=== PATIENT | female | born 1955 | race Caucasian/White ===

== ENCOUNTER → 2017-07-20 | Outpatient (CLI) | payer BC ==
[~2017-07-20] MED LIST: IOHEXOL 240 MG/ML 50ML VIAL. ONE; IOHEXOL 300 MG/ML 75 ML VIAL. IV ONE
[2017-07-20 08:23] LABS: CREATININE 1.1 mg/dL (0.6-1.0); GFR 50.2
--- NOTE | 2017-07-20 11:20 | RAD ---
CT abdomen/pelvis with IV and oral contrast Indication: 62-year-old female with abdominal pain, bloating and diarrhea. Technique: CT abdomen/pelvis with 60 mL of IV Omnipaque 300 and 30 mL of P.O. Omnipaque 240 with multiplanar reformats. Comparison: None Findings: Heart is normal in size. No pericardial or pleural effusion. Moderate-sized sliding hilar hernia. Clear lung bases. Liver is normal in morphology without focal hepatic lesion. Spleen within normal limits. No radiopaque gallstones. No pericholecystic fluid or inflammatory changes. Pancreas within normal limits without peripancreatic inflammatory changes. Adrenal glands show no nodularity. Simple appearing right renal cyst measuring 2.3 cm. There is a 1.7 x 1.8 x 1.3 cm partially exophytic lesion within the superior pole of the left kidney demonstrating high attenuation of 40 7HU. Several other cortical based low attenuating lesions are seen in the right kidney. No nephrolithiasis. No pathologically enlarged abdominal or pelvic adenopathy. No bowel obstruction. Mild sigmoid diverticulosis. Oral contrast is seen opacifying loops of small bowel. Small omental fat-containing umbilical hernia. Scattered atherosclerotic disease of the aorta. Uterus is not visualized. Left ovary is visualized and is within normal limits. Right ovary is not visualized. No free fluid in the pelvis. Small fat-containing bilateral inguinal hernias. No suspicious bony lesions. Impression: 1. No bowel obstruction. Moderate sized sliding hiatal hernia. Mild sigmoid diverticulosis without diverticulitis. 2. Simple right renal cyst. Lesions within left kidney, the dominant one within superior pole demonstrates high attenuation not typical of simple cyst and most likely represents minimally complicated cysts containing proteinaceous debris/blood products. Elective, nonemergent triple phase CT of the kidneys or MRI abdomen with and without IV contrast is recommended for further evaluation. PQRS Compliance Statement: One or more of the following individualized dose reduction techniques were utilized for this examination: 1. Automated exposure control 2. Adjustment of the mA and/or kV according to patient size 3. Use of iterative reconstruction technique
== END | disposition home or self-care (01) ==
LOC: CT 07:51
PROVIDERS: ATTEND Surgery
DX: N28.1 Cyst of kidney, acquired (principal); K40.90 Unilateral inguinal hernia, without obstruction or gangrene, not specified as recurrent; K44.9 Diaphragmatic hernia without obstruction or gangrene; K57.30 Diverticulosis of large intestine without perforation or abscess without bleeding; N28.89 Other specified disorders of kidney and ureter; K42.9 Umbilical hernia without obstruction or gangrene; I70.0 Atherosclerosis of aorta
CPT/HCPCS: 36415; 74177; 82565; 84520; Q9966; Q9967

== ENCOUNTER → 2018-06-13 | Outpatient (CLI) | payer BC ==
--- NOTE | 2018-06-14 07:40 | RAD ---
INDICATION: Left ankle pain. Twisting injury one day ago. TECHNIQUE: 3 views of the left ankle are submitted for review. No comparison is available. FINDINGS: There is diffuse soft tissue swelling more notable medially. There is no fracture or dislocation. There is no osseous lesion. IMPRESSION: Soft tissue swelling. Electronically signed by: Alvaro Santos MD (06/14/2018 7:36 AM) [facility]
== END | disposition home or self-care (01) ==
LOC: RAD 17:08
PROVIDERS: ATTEND Physician Assistant
DX: M79.89 Other specified soft tissue disorders (principal)
CPT/HCPCS: 73610

== ENCOUNTER → 2019-03-12 | Outpatient (CLI) | payer BC ==
--- NOTE | 2019-03-12 16:10 | RAD ---
EXAM: Chest, 2 views. HISTORY: Cough. COMPARISON: 06/13/2015. FINDINGS: 2 views of the chest are obtained. There is left perihilar atelectasis or interstitial infiltrate. There is no consolidation, effusion or pneumothorax. The heart is normal in size. There is a small hiatal hernia. IMPRESSION: Right perihilar atelectasis or interstitial infiltrate. Electronically signed by: Christine Crystal MD (03/12/2019 4:08 PM) [place] [id number]
== END | disposition home or self-care (01) ==
LOC: PMG 15:42
PROVIDERS: ATTEND Registered Nurse
DX: R05 Cough (principal); K44.9 Diaphragmatic hernia without obstruction or gangrene
CPT/HCPCS: 71046

== ENCOUNTER → 2019-12-31 | Outpatient (CLI) | payer BC ==
--- NOTE | 2019-12-31 10:35 | RAD ---
INDICATION: Abdomen pain COMPARISON: November 2015 TECHNIQUE: Grayscale and color ultrasound images obtained of the bilateral kidneys and bladder. FINDINGS: Right Kidney: 96 mm. No hydronephrosis. 33 x 31 mm cyst. Left Kidney: 95 mm. No hydronephrosis. 13 mm cyst. Bladder: Minimal urine within at time of exam limits evaluation. IMPRESSION: * No hydronephrosis with bilateral renal cysts seen. Increased from prior. Electronically signed by: Robbie Rodriguez MD (12/31/2019 10:32 AM) [facility] [place]
== END | disposition home or self-care (01) ==
LOC: US 08:21
PROVIDERS: ATTEND Physician Assistant Medical
DX: N28.1 Cyst of kidney, acquired (principal)
CPT/HCPCS: 76770

== ENCOUNTER → 2020-01-15 | Outpatient (CLI) | payer BC ==
--- NOTE | 2020-01-15 16:14 | RAD ---
EXAM: Left shoulder, 3 views. HISTORY: Pain. COMPARISON: None. FINDINGS: 3 views of the left shoulder obtained. There is no fracture, dislocation or subluxation. There is degenerative change involving the visualized cervical spine. IMPRESSION: No acute osseous finding. Electronically signed by: Christine Crystal MD (01/15/2020 4:11 PM) [facility] [place]
== END | disposition home or self-care (01) ==
LOC: PMG 14:42
PROVIDERS: ATTEND Physician Assistant
DX: M25.512 Pain in left shoulder (principal); M47.812 Spondylosis without myelopathy or radiculopathy, cervical region
CPT/HCPCS: 73030

== ENCOUNTER 2020-05-22 05:53 | Emergency (ER) | payer BC ==
[~2020-05-22] VITALS: Ht 170.2 cm; Wt 70.0 kg
[2020-05-22 06:08] VITALS: BP 132/71
--- NOTE | 2020-05-22 06:22 | PHYS DOC ---
Past History Past Medical History: GERD, Hypertension, UTI, Vascular Disease Past Surgical History: Appendectomy, Hysterectomy Smoking: Non-smoker Alcohol Use: Occasionally General Adult EDM: Chief Complaint: General Complaint HPI: HPI: Patient is a 64-year-old female presenting to the ED with a chief complaint of chills. Patient states that the symptoms started last night around 7 PM. Patient complains of mild bilateral low back pain and she thinks that she may have had a UTI. Patient denies fever, nausea, vomiting, chest pain, shortness of breath, cough. Patient states that last time she felt like that she had a UTI. Review of Systems: Review of Systems: Constitutional: Complains of chills Eyes: Denies change in visual acuity HENT: Denies nasal congestion or sore throat Respiratory: Denies cough or shortness of breath Cardiovascular: Denies chest pain or edema GI: Denies abdominal pain, nausea, vomiting, bloody stools or diarrhea : Denies dysuria Musculoskeletal: Complains of mild bilateral low back pain Neurologic: Denies headache, focal weakness or sensory changes Heart Score: Risk Factors: Risk Factors: DM, Current or recent (<one month) smoker, HTN, HLP, family history of CAD, obesity. Risk Scores: Score 0 - 3: 2.5% MACE over next 6 weeks - Discharge Home Score 4 - 6: 20.3% MACE over next 6 weeks - Admit for Clinical Observation Score 7 - 10: 72.7% MACE over next 6 weeks - Early Invasive Strategies Allergies: Allergies: Allergies Coded Allergies Type Severity Reaction Last Updated Verified ciprofloxacin Allergy Unknown 07/20/17 Yes Physical Exam: PE: Constitutional: Well developed, well nourished, no acute distress, non-toxic appearance. [] HENT: Normocephalic, atraumatic Eyes: EOMI Neck: Normal range of motion, Supple Cardiovascular:Heart rate regular rhythm Lungs & Thorax: Bilateral breath sounds clear to auscultation [] Abdomen: Bowel sounds normal, soft, no tenderness Extremities: No tenderness, ROM intact Neurologic: Alert and oriented X 3 Current Patient Data: Vital Signs: Vital Signs Date Time Temp Pulse Resp B/P (MAP) Pulse Ox O2 Delivery O2 Flow Rate FiO2 05/22/20 06:08 97.9 87 20 132/71 (91) 95 Room Air EKG: EKG: [] Radiology/Procedures: Radiology/Procedures: [] Course & Med Decision Making: Course & Med Decision Making Pertinent Labs reviewed. (See chart for details) Ordered labs, UA. Patient is afebrile currently. Labs show mild leukocytosis of 13.1. UA shows that patient has UTI. IV Rocephin given in the ER. Patient will be discharged home on oral antibiotics. Discussed results and plan of care with patient. Patient is instructed to follow up with PCP in one to 2 days. Appropriate discharge instructions given to patient to return to the ED or to seek immediate medical evaluation. Patient is instructed to return to the ED if symptoms worsen or if any concerns. Dragon Disclaimer: Dragon Disclaimer: This electronic medical record was generated, in whole or in part, using a voice recognition dictation system. Departure Departure: Impression: Primary Impression: UTI (urinary tract infection) Disposition: 01 HOME/RESIDENCE PRIOR TO ADM Condition: STABLE Referrals: CARMEN DOMINGUEZ (PCP) Patient Instructions: Urinary Tract Infection Additional Instructions: Discussed results and plan of care with patient. Patient is instructed to follow up with PCP in one to 2 days. Appropriate discharge instructions given to patient to return to the ED or to seek immediate medical evaluation. Patient is instructed to return to the ED if symptoms worsen or if any concerns. Scripts Nitrofurantoin Monohyd/M-Cryst (MACROBID 100 MG CAPSULE) 100 Mg Capsule 1 CAP PO BID for UTI for 10 Days, #20 CAP 0 Refills Prov: ANAYA GLASER DO 05/22/20 Justification of Admission: Justification of Admission: Justification of Admission Dx: No ANAYA GLASER DO May 22, 2020 06:22
[2020-05-22 06:45] LABS: BASO # 0.1 x10^3/uL (0.0-0.2); BASO % 0 % (0-3); EOS # 0.1 x10^3/uL (0.0-0.7); EOS % 1 % (0-3); HEMATOCRIT 35.8 % (36.0-47.0); HEMOGLOBIN 12.1 g/dL (12.0-15.5); LYMPH % 8 % (24-48); MEAN CORPUSCULAR HEMOGLOBIN 30 pg (25-35); MEAN CORPUSCULAR HGB CONC 34 g/dL (31-37); MEAN CORPUSCULAR VOLUME 89 fL (79-100); MONO % 8 % (0-9); NEUT # 10.9 x10^3uL (1.8-7.7); NEUT % 83 % (31-73); PLATELET COUNT 263 x10^3/uL (140-400); RED BLOOD COUNT 4.04 x10^6/uL (3.50-5.40); RED CELL DISTRIBUTION WIDTH 14.1 % (11.5-14.5); WHITE BLOOD COUNT 13.1 x10^3/uL (4.0-11.0)
[2020-05-22 06:53] LABS: CALCIUM 8.8 mg/dL (8.5-10.1); CREATININE 1.1 mg/dL (0.6-1.0); GFR 49.8; POTASSIUM 3.4 mmol/L (3.5-5.1)
[2020-05-22 06:54] LABS: BILIRUBIN,URINE NEG (NEG); CLARITY,URINE CLOUDY; COLOR,URINE YELLOW; GLUCOSE,URINE NEG (NEG); NITRITE,URINE POS (NEG); UROBILINOGEN,URINE 0.2 mg/dL (0.2 mg/dL)
[2020-05-22 06:55] LABS: BACTERIA,URINE MANY /HPF (0-FEW); SQUAMOUS EPITHELIAL CELL,UR MOD /LPF; WBC,URINE 20-40 /HPF (0-4)
[2020-05-22 06:59] LABS: ALBUMIN 3.7 g/dL (3.4-5.0); ALBUMIN/GLOBULIN RATIO 0.9 (1.0-1.7); TOTAL BILIRUBIN 0.5 mg/dL (0.2-1.0); TOTAL PROTEIN 7.6 g/dL (6.4-8.2)
[2020-05-22] MEDS ORDERED: NITR100C62 PO (07:13)
[2020-05-22] MEDS ORDERED: cefTRIAXone SODIUM 1 GM VIAL ONE (07:20)
[2020-05-22] MEDS ORDERED: IV NORMAL SALINE 50ML 50 ML ONE (07:20)
== END 2020-05-22 08:15 | disposition home or self-care (01) ==
LOC: ER 05:53
DX: N39.0 Urinary tract infection, site not specified (principal); M54.5 Low back pain; R68.83 Chills (without fever); I10 Essential (primary) hypertension; K21.9 Gastro-esophageal reflux disease without esophagitis; Z90.89 Acquired absence of other organs; Z90.710 Acquired absence of both cervix and uterus; Z88.1 Allergy status to other antibiotic agents
CPT/HCPCS: 36415; 80053; 81001; 85025; 87086; 96365; 99284; J0696; 87077; 87186

== ENCOUNTER 2020-05-23 20:13 | Inpatient (IN) | payer BC ==
[~2020-05-23] VITALS: Ht 162.6 cm; Wt 89.5 kg
[~2020-05-23 20:13] MED LIST changes: -IOHEXOL 240 MG/ML 50ML VIAL. ONE; -IOHEXOL 300 MG/ML 75 ML VIAL. IV ONE; +NITR100C62 PO
[2020-05-23] MEDS ORDERED: IV NORMAL SALINE 1,000ML 1,000 ML IV SCH ×3 (20:45→23:45)
[2020-05-23 21:20] LABS: BASO % 0 % (0-3); CREATININE 1.1 mg/dL (0.6-1.0); EOS # 0.1 x10^3/uL (0.0-0.7); EOS % 1 % (0-3); GFR 49.8; HEMATOCRIT 32.9 % (36.0-47.0); HEMOGLOBIN 11.1 g/dL (12.0-15.5); LYMPH # 0.6 x10^3/uL (1.0-4.8); LYMPH % 4 % (24-48); MEAN CORPUSCULAR HEMOGLOBIN 30 pg (25-35); MEAN CORPUSCULAR HGB CONC 34 g/dL (31-37); MEAN CORPUSCULAR VOLUME 89 fL (79-100); MONO # 0.7 x10^3/uL (0.0-1.1); MONO % 5 % (0-9); NEUT # 12.2 x10^3uL (1.8-7.7); NEUT % 90 % (31-73); PLATELET COUNT 245 x10^3/uL (140-400); POTASSIUM 3.3 mmol/L (3.5-5.1); RED BLOOD COUNT 3.69 x10^6/uL (3.50-5.40); RED CELL DISTRIBUTION WIDTH 14.1 % (11.5-14.5); WHITE BLOOD COUNT 13.6 x10^3/uL (4.0-11.0)
[2020-05-23 21:26] LABS: ALBUMIN 3.6 g/dL (3.4-5.0); ALBUMIN/GLOBULIN RATIO 1.1 (1.0-1.7); TOTAL BILIRUBIN 0.5 mg/dL (0.2-1.0)
[2020-05-23 21:27] LABS: BILIRUBIN,URINE NEG (NEG); CLARITY,URINE CLEAR; COLOR,URINE YELLOW; GLUCOSE,URINE NEG (NEG); NITRITE,URINE NEG (NEG); UROBILINOGEN,URINE 0.2 mg/dL (0.2 mg/dL)
[2020-05-23 21:28] LABS: BACTERIA,URINE MOD /HPF (0-FEW); SQUAMOUS EPITHELIAL CELL,UR FEW /LPF
--- NOTE | 2020-05-23 21:32 | PHYS DOC ---
Past History Past Medical History: GERD, Hypertension, UTI, Vascular Disease Past Surgical History: Appendectomy, Hysterectomy, Other Additional Past Surgical Histo: BLADDER RECONSTRUCTION, HERNIA Smoking: Non-smoker Alcohol Use: Occasionally General Adult EDM: Chief Complaint: FEVER HPI: HPI: 64-year-old female presents with fever and chills. The patient has felt generalized body aches and cramping and intermittent chills for the last 3 days. She has not had a fever until tonight. She is also had some mild shortness of breath without a significant cough. She was diagnosed with a UTI yesterday. She is on Macrobid. She has been taking her medications. Sensitivity results are not available. Patient has no specific COVID-19 exposures. 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 Review of Systems: Review of Systems: Constitutional: Fever and chills; body aches. Eyes: Denies change in visual acuity HENT: Denies nasal congestion or sore throat Respiratory: shortness of breath Cardiovascular: Denies chest pain or edema GI: Denies abdominal pain, nausea, vomiting, bloody stools or diarrhea : Denies dysuria Musculoskeletal: Denies back pain or joint pain Integument: Denies rash Neurologic: Denies headache, focal weakness or sensory changes Endocrine: Denies polyuria or polydipsia Lymphatic: Denies swollen glands Psychiatric: Denies depression or anxiety Heart Score: Risk Factors: Risk Factors: DM, Current or recent (<one month) smoker, HTN, HLP, family hi story of CAD, obesity. Risk Scores: Score 0 - 3: 2.5% MACE over next 6 weeks - Discharge Home Score 4 - 6: 20.3% MACE over next 6 weeks - Admit for Clinical Observation Score 7 - 10: 72.7% MACE over next 6 weeks - Early Invasive Strategies Current Medications: Current Meds: Current Medications Medications (Trade) Dose Ordered Sig/Sonya Start Time Stop Time Status Last Admin Dose Admin Acetaminophen (Tylenol) 650 mg 1X ONCE 05/23/20 21:45 05/23/20 21:46 Sodium Chloride 1,000 ml @ 1,650 mls/hr Q37M 05/23/20 20:45 05/23/20 21:45 05/23/20 20:45 1,650 MLS/HR Allergies: Allergies: Allergies Coded Allergies Type Severity Reaction Last Updated Verified Sulfa (Sulfonamide Antibiotics) Allergy Unknown 05/23/20 Yes ciprofloxacin Allergy Unknown 07/20/17 Yes Physical Exam: PE: Constitutional: Well developed, obese, well nourished, mild acute distress, non- toxic appearance. [] HENT: Normocephalic, atraumatic, bilateral external ears normal, oropharynx moist, no oral exudates, nose normal. [] Eyes: PERRLA, EOMI, conjunctiva normal, no discharge. [] Neck: Normal range of motion, no tenderness, supple, no stridor. [] Cardiovascular: Heart rate regular rhythm, no murmur [] Lungs & Thorax: Bilateral breath sounds clear to auscultation [] Abdomen: Bowel sounds normal, soft, no tenderness, no masses, no pulsatile masses. [] Skin: Warm, dry, no erythema, no rash. [] Back: No tenderness, no CVA tenderness. [] Extremities: No tenderness, no cyanosis, no clubbing, ROM intact, no edema. [] Neurologic: Alert and oriented X 3, normal motor function, normal sensory function, no focal deficits noted. [] Psychologic: Affect normal, judgement normal, mood normal. [] Current Patient Data: Labs: Laboratory Tests Test 05/23/20 20:55 White Blood Count 13.6 x10^3/uL (4.0-11.0) H Red Blood Count 3.69 x10^6/uL (3.50-5.40) Hemoglobin 11.1 g/dL (12.0-15.5) L Hematocrit 32.9 % (36.0-47.0) L Mean Corpuscular Volume 89 fL (79-100) Mean Corpuscular Hemoglobin 30 pg (25-35) Mean Corpuscular Hemoglobin Concent 34 g/dL (31-37) Red Cell Distribution Width 14.1 % (11.5-14.5) Platelet Count 245 x10^3/uL (140-400) Neutrophils (%) (Auto) 90 % (31-73) H Lymphocytes (%) (Auto) 4 % (24-48) L Monocytes (%) (Auto) 5 % (0-9) Eosinophils (%) (Auto) 1 % (0-3) Basophils (%) (Auto) 0 % (0-3) Neutrophils # (Auto) 12.2 x10^3uL (1.8-7.7) H Lymphocytes # (Auto) 0.6 x10^3/uL (1.0-4.8) L Monocytes # (Auto) 0.7 x10^3/uL (0.0-1.1) Eosinophils # (Auto) 0.1 x10^3/uL (0.0-0.7) Basophils # (Auto) 0.0 x10^3/uL (0.0-0.2) Vital Signs: Vital Signs Date Time Temp Pulse Resp B/P (MAP) Pulse Ox O2 Delivery O2 Flow Rate FiO2 05/23/20 21:06 99 20 132/71 (91) 97 Room Air 05/23/20 20:20 100.0 EKG: EKG: [] Radiology/Procedures: Radiology/Procedures: [] Impressions: Exam: Chest 2 views INDICATION: Cough TECHNIQUE: Frontal and lateral views of the chest Comparisons: None FINDINGS: The cardiomediastinal silhouette and pulmonary vessels are within normal limits. The lung and pleural spaces are clear. Fluid-filled distention of the esophagus with air-fluid level. IMPRESSION: Fluid-filled distention of the esophagus with air-fluid level. Correlate for achalasia. Consider aspiration precautions. Electronically signed by: Aaron Valentin MD (05/23/2020 9:52 PM) [id number] DICTATED AND SIGNED BY: AARON VALENTIN MD DATE: 05/23/202151 CC: HOWARD IGLESIAS DO; CARMEN DOMINGUEZ PA ~ Course & Med Decision Making: Course & Med Decision Making Pertinent Labs and Imaging studies reviewed. (See chart for details) The patient's heart rate is greater than 90, her blood pressure is normal, she has a fever, and a suspected source of infection. She meets sepsis criteria. 30 mL/kg of ideal body weight have been ordered as the patient's BMI is greater than 30. Lactic acid and blood cultures have been ordered. I will also give her Rocephin 1 g IV. The patient's urinalysis still shows white cells and bacteria, but leukocyte and nitrite negative. Her white count is 13. I will admit her to the hospital with presumed urosepsis., To go ahead and add a COVID-19 swab. Chest x-ray is negative for pneumonia. There is an air-fluid level in the esophagus. See official report for more details. I spoke with Dr. Deutsch and he has accepted the patient for admission. The presumption at this time is urosepsis. 47 minutes of critical care time was spent on this patient exclusive of other billable procedures. [] Dragon Disclaimer: Dragon Disclaimer: This electronic medical record was generated, in whole or in part, using a voice recognition dictation system. Departure Departure: Impression: Primary Impression: Sepsis Qualified Codes: A41.51 - Sepsis due to Escherichia coli [e. coli] Disposition: ADMITTED INPATIENT Admitting Physician: Chente Deutsch Condition: STABLE Referrals: CARMEN DOMINGUEZ (PCP) Justification of Admission: Justification of Admission: Justification of Admission Dx: Yes Sepsis: Infection Sepsis Assessment: Date and Time of Assessment Date: May 23, 2020 Time: 21:30 Vital Signs Vital Signs Vital Signs Date Time Temp Pulse Resp B/P (MAP) Pulse Ox O2 Delivery O2 Flow Rate FiO2 05/23/20 21:53 98 20 130/64 (86) 96 Room Air 05/23/20 20:20 100.0 Respirations Respiratory Effort: Normal Respiratory Pattern: Normal Cardiovascular HEART: No murmurs noted Lung Sounds Breath Sounds: Clear Capillary Refill Capillary Refill: Rt Hand < 3 seconds Peripheral Pulse Pulse Location: Monitor Pulse Strength: Normal (2+) Pulse Assessment Method: Monitor Integumentary Skin: Warm Skin Moisture: Dry Skin Turgor: Normal Skin Color: warm Fingernail Color: WNL Sepsis Assessment: Date and Time of Assessment Date: May 23, 2020 Time: 22:59 Vital Signs Vital Signs Vital Signs Date Time Temp Pulse Resp B/P (MAP) Pulse Ox O2 Delivery O2 Flow Rate FiO2 05/23/20 21:53 98 20 130/64 (86) 96 Room Air 05/23/20 20:20 100.0 Respirations Respiratory Effort: Normal Respiratory Pattern: Normal Cardiovascular Pulse Rhythm: Regular HEART: No murmurs noted Lung Sounds Breath Sounds: Clear Capillary Refill Capillary Refill: Rt Hand < 3 seconds Peripheral Pulse Pulse Location: Monitor Pulse Strength: Normal (2+) Pulse Assessment Method: Monitor Integumentary Skin: Warm Skin Moisture: Dry Skin Turgor: Normal Skin Color: warm Fingernail Color: WNL HOWARD IGLESIAS DO May 23, 2020 21:32
[2020-05-23] MEDS ORDERED: IV NORMAL SALINE 50ML 50 ML ONE (21:42)
[2020-05-23] MEDS ORDERED: cefTRIAXone SODIUM 1 GM VIAL ONE (21:42)
[2020-05-23] MEDS ORDERED: ACETAMINOPHEN 325 MG TABLET PO ONE (21:45)
--- NOTE | 2020-05-23 21:55 | RAD ---
Exam: Chest 2 views INDICATION: Cough TECHNIQUE: Frontal and lateral views of the chest Comparisons: None FINDINGS: The cardiomediastinal silhouette and pulmonary vessels are within normal limits. The lung and pleural spaces are clear. Fluid-filled distention of the esophagus with air-fluid level. IMPRESSION: Fluid-filled distention of the esophagus with air-fluid level. Correlate for achalasia. Consider aspiration precautions. Electronically signed by: Aaron Cheng MD (05/23/2020 9:52 PM) [id number]
[2020-05-23] MEDS ORDERED: ONDANSETRON PF 4 MG/2 ML VIAL. IVP PRN ×2 (23:45)
[2020-05-23] MEDS ORDERED: ACETAMINOPHEN 325 MG TABLET PO PRN ×2 (23:45)
[2020-05-23 23:50] VITALS: BP 128/75
--- NOTE | 2020-05-23 23:50 | NUR ---
The patient, DILIA BONILLA, 64 y/o, F admitted by VALE AVILES MD, was given written information regarding hospital policies, unit procedures and contact persons. Valuables were checked and logged. Call light at bedside. Will continue to monitor.
[2020-05-24 01:00] VITALS: BP 125/76
[2020-05-24] MEDS ORDERED: AMLO10TA8 PO (01:33)
[2020-05-24] MEDS ORDERED: OMEP40CA45 PO (01:33)
[2020-05-24 02:16] VITALS: BP 127/71
[2020-05-24] MEDS ORDERED: LOSA100T14 PO (02:16)
--- NOTE | 2020-05-24 02:17 | NUR ---
Pt is unaware of what medication she takes. She knows 3 out of the 4. She takes her blood pressure meds at night but when told her blood pressure is wnl she verbalizes understanding of not taking her meds. Will continue to monitor.
[2020-05-24 03:00] VITALS: BP 99/52
[2020-05-24 04:59] VITALS: BP 126/79
[2020-05-24 08:34] VITALS: BP 134/77
[2020-05-24 09:39] VITALS: BP 110/67
--- NOTE | 2020-05-24 10:24 | HP ---
ADMIT DATE: 05/23/2020 ATTENDING PHYSICIAN: Dr. vAiles. CHIEF COMPLAINT: Low-grade fevers and weakness. HISTORY OF PRESENT ILLNESS: The patient is a pleasant active 64-year-old female with a 3-day history of body aches, cramping, intermittent chills and low-grade fever was 100 degrees Fahrenheit. She had some mild cough. She was diagnosed with UTI, placed on Macrobid. In addition, she has some redness and cellulitis involving the medial portion of the right ankle. The dimensions are approximately 3 x 6 cm. There are no obvious open wounds. The skin is red and indurated, but very mild. I malia a line of demarcation. She denied any recent trauma. She was admitted then with a UTI, which cultures from the ED grew out greater than 100,000 colonies of E. coli, which is pansensitive to antibiotics. PAST MEDICAL HISTORY: Significant for essential hypertension, peripheral vascular disease. PAST SURGICAL HISTORY: Appendectomy, hysterectomy and previous bladder reconstruction. SOCIAL HISTORY: She is a nonsmoker, nondrinker. FAMILY HISTORY: Her mom at age 64 of a cerebral aneurysm. Father at age 66 of complications of heart disease and emphysema. He had been a heavy smoker. She is . 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 She is exposed to the public, but there has not been any recent exposure for COVID-19 symptoms. CURRENT MEDICATIONS: Reviewed. She takes scheduled amlodipine 10 mg daily, losartan, Macrobid and omeprazole. REVIEW OF SYSTEMS: Significant for the low-grade fevers. She has had generalized weakness, some nausea. Appetite has been fair. No diarrhea, no vomiting. She denied any chest pain, palpitations, shortness of breath. All other systems reviewed and determined to be negative. PHYSICAL EXAMINATION: GENERAL: When I saw her, this is a pleasant, middle-aged female. INITIAL VITAL SIGNS: Showed a blood pressure 134/77 mmHg. Her temperature is 99.1 degrees Fahrenheit, pulse is 86 and regular, her oxygen saturations were 96% on room air. HEENT: Head is without trauma. Pupils are reactive. The sclerae are nonicteric. The oropharynx is clear. NECK: Supple, no bruits identified. LUNGS: Otherwise, clear to auscultation. CARDIOVASCULAR: Showed regular heart tones. No obvious gallops. Peripheral pulses are palpable and full. ABDOMEN: Soft, nontender to palpation. Bowel sounds are normoactive. EXTREMITIES: Showed no cyanosis. There is a small zone of erythema and mild induration on the medial portion of the right ankle. There are no obvious open wounds. The soles of the feet are intact. There are no obvious wounds, drainage or abscess. NEUROLOGIC: Focally intact. Speech is fluent. Technician Test Systems were intact. PERTINENT LABORATORY STUDIES: In the ED, her hemoglobin was 11.1 g/dL with white count of 13,000. Her sodium was 134 mEq/L, potassium 3.3 mEq. Lactic acid was 0.9. Liver panel unremarkable. Creatinine 1.1 mg/dL. Urine cultures from the ED noted, greater than 100,000 colonies of E. coli, which was sargent sensitive to the antibiotic. ASSESSMENT: 1. This 64-year-old female has E. coli documented urinary tract infection. I do not believe she is septic this time. Her lactic acid level was normal. Her temperature was low-grade. She is afebrile now and she does not appear toxic. 2. Localized cellulitis medial portion of the right ankle, etiology unclear. 3. Essential hypertension. 4. History of previous bladder surgery. PLAN: 1. Admit to the inpatient unit. 2. IV antibiotics as scheduled. 3. Continue home meds. 4. Diet as tolerated. VALE AVILES MD DR: TATY/mayra JOB#: [id number] / [id number] CARMEN Gomez
--- NOTE | 2020-05-24 10:33 | NUR ---
Pt discharging per Dr. Deutsch, pt a/ox4, vitals signs stable, reviewed d/c paperwork and follow up with pt. Levaquin 500mg PO daily x7 days called in to pt requested pharmacy, as well as hand written prescription given to pt. will crab picker pt at 1100. All questions answered.
--- NOTE | 2020-05-24 11:09 | NUR ---
pt discharged with -ambulated to car. All belongings taken.
--- NOTE | 2020-05-24 12:06 | NUR ---
[facility] pharmacy called to report interaction between Levaquin and Celexa that the pt is currently taking. Pt did not report taking Celexa during this hospital visit. Dr Deutsch called to report possible interaction-he instructed this nurse to call pt and tell her to not take Celexa during 7 days of prescribed Levaquin. Pt called explained possible interaction between two meds-pt verbalized she would not take celexa during 7 days of Levaquin prescription. Nurse explained to resume Celexa after Levaquin prescription completed.
--- NOTE | 2020-05-24 13:20 | DS ---
DATE OF DISCHARGE: 05/24/2020 FINAL DISCHARGE DIAGNOSES: 1. Escherichia coli urinary tract infection without evidence of sepsis syndrome. 2. Localized cellulitis medial portion, right ankle. 3. Essential hypertension. 4. Mild dehydration, rehydrated. 5. History of bladder repair. HISTORY AND PHYSICAL: This is a pleasant active 64-year-old female with vague symptoms of weakness, not feeling well, low-grade fevers. She had a documented UTI done in the ED. She also had some localized cellulitis, clinically she does not appear septic at the time of admission. PHYSICAL EXAMINATION: Please see my dictated note. PERTINENT LABORATORY AND X-RAY STUDIES: Her white count was slightly elevated at 13,000; hemoglobin 11.1 g. Electrolytes are within normal range. Creatinine 1.2 percent. Urine culture reviewed dated May 23. She had greater than 100,000 colonies of E. coli, pansensitive to antibiotics. COURSE IN THE HOSPITAL: The patient was admitted overnight. She did well with IV hydration. Rocephin was administered. Her temperature defervesced. I examined her the next day, her symptoms have improved. The localized redness and cellulitis of the right ankle is improved ____. She felt well, she wanted to go home. I felt this is reasonable. Therefore, on the second hospital day, I recommended oral Gatorade to help with the electrolyte balance. In addition, 7 more days of Levaquin 500 mg p.o. daily for 7 days and stop. In the past, she reported as supposed allergy to CIPRO as it turned out it is not a true allergy. At that time, she had some shortness of breath and cough due to MONTSERRAT inhibitor and lisinopril. Therefore, at this time, I am ordering Levaquin, which will help with Staphylococcus coverage. Please note that she truly does not have a drug reaction or allergy to quinolones. She will continue her home meds are amlodipine and losartan. I suggested a followup visit with Joao Rutherford in a week's time or earlier if symptoms do not improve. She did have a COVID-19 swab which is very unlikely given the lack of symptoms that was still pending. She will call back here for the results later this week. The patient was then discharged from our hospital in stable condition with explicit instructions and followup care. VALE AVILES MD DR: TATY/mayra JOB#: [id number] / [id number] CARMEN Gomez
--- NOTE | 2020-06-03 15:29 | NUR ---
IP: notified patient of COVID-19 result.
== END 2020-05-24 11:09 | disposition home or self-care (01) | DRG 603 ==
LOC: ER 20:13 → ICU 23:00 → ER 23:42
PROVIDERS: ADMIT Hospitalist; ATTEND Hospitalist
DX: L03.115 Cellulitis of right lower limb (principal); N39.0 Urinary tract infection, site not specified; E86.0 Dehydration; I10 Essential (primary) hypertension; I73.9 Peripheral vascular disease, unspecified; B96.20 Unspecified Escherichia coli [E. coli] as the cause of diseases classified elsewhere; Z82.5 Family history of asthma and other chronic lower respiratory diseases; Z88.1 Allergy status to other antibiotic agents; Z90.49 Acquired absence of other specified parts of digestive tract; Z90.710 Acquired absence of both cervix and uterus; Z88.2 Allergy status to sulfonamides; Z20.828 Contact with and (suspected) exposure to other viral communicable diseases; K21.9 Gastro-esophageal reflux disease without esophagitis
CPT/HCPCS: 36415; 71046; 80053; 81001; 83605; 85025; 87040; 87077; 87086; 87186; 96361; 96365; 99284; 99291; J0696; J7030; U0003-CS

== ENCOUNTER 2020-07-04 13:41 | Emergency (ER) | payer BC ==
[~2020-07-04] VITALS: Ht 165.1 cm; Wt 89.5 kg
[~2020-07-04 13:41] MED LIST changes: +AMLO10TA8 PO; +LOSA100T14 PO; +OMEP40CA45 PO
--- NOTE | 2020-07-04 14:14 | RAD ---
CHEST AP ONLY History: Shortness of breath: Comparison: May 23, 2020 Findings: Single view of the chest is submitted. There is no infiltrate, pneumothorax, or effusion. The pericardial cardiac silhouette is within normal limits in size. There is small hiatal hernia. Impression: 1. There is no radiographic evidence of acute cardiopulmonary disease. 2. There is small hiatal hernia. Electronically signed by: Lit Pettit MD (07/04/2020 2:11 PM) [id number]
[2020-07-04 14:43] LABS: BASO % 0 % (0-3); EOS # 0.1 x10^3/uL (0.0-0.7); EOS % 1 % (0-3); HEMATOCRIT 33.7 % (36.0-47.0); HEMOGLOBIN 11.3 g/dL (12.0-15.5); LYMPH # 1.3 x10^3/uL (1.0-4.8); LYMPH % 10 % (24-48); MEAN CORPUSCULAR HEMOGLOBIN 30 pg (25-35); MEAN CORPUSCULAR HGB CONC 34 g/dL (31-37); MEAN CORPUSCULAR VOLUME 89 fL (79-100); MONO % 8 % (0-9); NEUT # 10.3 x10^3uL (1.8-7.7); NEUT % 81 % (31-73); PLATELET COUNT 242 x10^3/uL (140-400); RED BLOOD COUNT 3.81 x10^6/uL (3.50-5.40); RED CELL DISTRIBUTION WIDTH 14.5 % (11.5-14.5); WHITE BLOOD COUNT 12.8 x10^3/uL (4.0-11.0)
[2020-07-04 14:46] LABS: CALCIUM 9.4 mg/dL (8.5-10.1); CREATININE 1.1 mg/dL (0.6-1.0); GFR 49.7; POTASSIUM 3.2 mmol/L (3.5-5.1)
[2020-07-04 14:53] LABS: ALBUMIN 3.8 g/dL (3.4-5.0); ALBUMIN/GLOBULIN RATIO 0.9 (1.0-1.7); C REACTIVE PROTEIN 125.5 mg/L (0-3.3); TOTAL BILIRUBIN 0.6 mg/dL (0.2-1.0); TOTAL PROTEIN 8.2 g/dL (6.4-8.2)
[2020-07-04] MEDS ORDERED: IOHEXOL 240 MG/ML 50ML VIAL. PO ONE (16:00)
[2020-07-04] MEDS ORDERED: IOHEXOL 350 MG/ML 100 ML VIAL. IV ONE (16:00)
[2020-07-04] MEDS ORDERED: POTASSIUM CHLORIDE 20 MEQ TABLET.ER. PO ONE (16:30)
--- NOTE | 2020-07-04 17:44 | PHYS DOC ---
Past History Past Medical History: No Pertinent History (KIAH BARRETO MD) Past Surgical History: No Surgical History Additional Past Surgical Histo: BLADDER RECONSTRUCTION, HERNIA (KIAH BARRETO MD) Smoking: Non-smoker Alcohol Use: None (KIAH BARRETO MD) Adult General Chief Complaint Chief Complaint: FEVER HPI HPI Patient is a 65 year old female who presents with multiple complaints. Patient was admitted at the end of April with E. coli sepsis from her bowels. She states since that time she is continued to have intermittent abdominal pains which have been getting worse. She continues to have aches and fevers. This is gotten particularly bad over the last 2 or 3 days. She also has developed shortness of breath particularly when she is trying to walk up and down stairs. She does not typically have shortness of breath. She denies any cough. She has been taking Tylenol and ibuprofen for symptoms with some improvement. She denies any swelling in her legs. (KIAH BARRETO MD) Review of Systems Review of Systems General: Reports fever, chills, sweats, fatigue Eyes: Denies drainage, blurred vision, eye redness HENT: Denies rhinorrhea, sore throat, earache Respiratory: Denies cough, wheezing reports shortness of breath Cardiac: Denies edema, palpitations, chest pain GI: Reports abdominal pain, Nausea MSK: Denies back pain, neck pain Skin: Denies rash, jaundice Neuro: Denies headache, dizziness Psychiatric: Denies SI/HI (KIAH BARRETO MD) Current Medications Current Medications Current Medications Medications (Trade) Dose Ordered Sig/Sonya Start Time Stop Time Status Last Admin Dose Admin Iohexol (Omnipaque 240 Mg/ml) 50 ml 1X ONCE 07/04/20 16:00 07/04/20 16:05 DC 07/04/20 17:29 50 ML Iohexol (Omnipaque 350 Mg/ml) 100 ml 1X ONCE 07/04/20 16:00 07/04/20 16:05 DC 07/04/20 17:29 75 ML Potassium Chloride (Klor-Con) 40 meq 1X ONCE 07/04/20 16:30 07/04/20 16:31 DC (KIAH BARRETO MD) Allergies Allergies Allergies Coded Allergies Type Severity Reaction Last Updated Verified Sulfa (Sulfonamide Antibiotics) Allergy Unknown 05/23/20 Yes ciprofloxacin Allergy Unknown 07/20/17 Yes (KIAH BARRETO MD) Physical Exam Physical Exam General: Awake, alert, NAD. Well Nourished, well hydrated. Cooperative HEENT: Atraumatic, EOMI, PERRL, airway patent, moist oral mucosa Neck: Supple, trachea midline Respiratory: CTA bilaterally, normal effort, no wheezing/crackles CV: RRR, no murmur, cap refill <2 GI: Soft, nondistended, nontender, no masses MSK: No obvious deformities, no joint effusions in either knee, no edema in the legs Skin: Warm, dry, intact Neuro: A&O x3, speech NL, sensory and motor grossly intact, no focal deficits Psych: Normal affect, normal mood, not suicidal or homicidal (KIAH BARRETO MD) Current Patient Data Vital Signs Vital Signs Date Time Temp Pulse Resp B/P (MAP) Pulse Ox O2 Delivery O2 Flow Rate FiO2 07/04/20 16:44 98.6 94 20 123/76 (92) 99 Room Air Lab Results Laboratory Tests Test 07/04/20 14:15 White Blood Count 12.8 x10^3/uL (4.0-11.0) H Red Blood Count 3.81 x10^6/uL (3.50-5.40) Hemoglobin 11.3 g/dL (12.0-15.5) L Hematocrit 33.7 % (36.0-47.0) L Mean Corpuscular Volume 89 fL (79-100) Mean Corpuscular Hemoglobin 30 pg (25-35) Mean Corpuscular Hemoglobin Concent 34 g/dL (31-37) Red Cell Distribution Width 14.5 % (11.5-14.5) Platelet Count 242 x10^3/uL (140-400) Neutrophils (%) (Auto) 81 % (31-73) H Lymphocytes (%) (Auto) 10 % (24-48) L Monocytes (%) (Auto) 8 % (0-9) Eosinophils (%) (Auto) 1 % (0-3) Basophils (%) (Auto) 0 % (0-3) Neutrophils # (Auto) 10.3 x10^3uL (1.8-7.7) H Lymphocytes # (Auto) 1.3 x10^3/uL (1.0-4.8) Monocytes # (Auto) 1.0 x10^3/uL (0.0-1.1) Eosinophils # (Auto) 0.1 x10^3/uL (0.0-0.7) Basophils # (Auto) 0.0 x10^3/uL (0.0-0.2) D-Dimer (Caroline) 0.53 mg/L (0.00-0.50) H Sodium Level 133 mmol/L (136-145) L Potassium Level 3.2 mmol/L (3.5-5.1) L Chloride Level 96 mmol/L (98-107) L Carbon Dioxide Level 26 mmol/L (21-32) Anion Gap 11 (6-14) Blood Urea Nitrogen 14 mg/dL (7-20) Creatinine 1.1 mg/dL (0.6-1.0) H Estimated GFR (Cockcroft-Gault) 49.7 BUN/Creatinine Ratio 13 (6-20) Glucose Level 103 mg/dL (70-99) H Calcium Level 9.4 mg/dL (8.5-10.1) Total Bilirubin 0.6 mg/dL (0.2-1.0) Aspartate Amino Transferase (AST) 18 U/L (15-37) Alanine Aminotransferase (ALT) 25 U/L (14-59) Alkaline Phosphatase 84 U/L (46-116) Lactate Dehydrogenase 165 U/L (81-234) Creatine Kinase 49 U/L (26-192) Troponin I Quantitative < 0.017 ng/mL (0-0.055) C-Reactive Protein 125.5 mg/L (0-3.3) H Total Protein 8.2 g/dL (6.4-8.2) Albumin 3.8 g/dL (3.4-5.0) Albumin/Globulin Ratio 0.9 (1.0-1.7) L (KIAH BARRETO MD) EKG EKG [] (KIAH BARRETO MD) Radiology/Procedures Radiology/Procedures [] (KIAH BARRETO MD) Radiology/Procedures IMAGING REPORT Signed PATIENT: DILIA BONILLA LACCOUNT: [id number] : 1955 LOCATION: ER AGE: 65 SEX: F EXAM STATUS: REG ER ORD. PHYSICIAN: KIAH BARRETO MD REASON: sob, chest pain, recent inpatient stay PROCEDURE: CT ANGIO CHEST W ABD PEL W/ Exam: CT of chest, abdomen and pelvis with contrast INDICATION: Shortness of breath, chest pain TECHNIQUE: Sequential axial images through the chest, abdomen and pelvis obtained following the administration of 75 mL of Omni 350 IV contrast. Sagittal and coronal reformatted images were reconstructed from the axial data and reviewed. Comparisons: None FINDINGS: Heterogenous appearance of the right thyroid gland. No suspicious lung nodules are identified. Heart size is normal. No pericardial effusion. Thoracic aorta has a normal course and caliber. Pulmonary artery is not enlarged. No pulmonary embolus identified within the main, lobar or segmental pulmonary arteries. Airways are patent. No consolidation or pneumothorax. No suspicious lung nodules. No pleural effusion or thickening. Liver, spleen, pancreas, gallbladder and adrenals are unremarkable. No perinephric inflammation or hydronephrosis. No renal or ureteral calculi are identified. There are numerous hypoattenuating cystic lesions within the kidneys bilaterally some of which are too small characterize. Bladder is distended and appears thin-walled. Uterus is absent. No abnormal adnexal mass. Few scattered diverticula noted within the descending and sigmoid colon without evidence of acute diverticulitis. Remainder of the large and small bowel are unremarkable. Appendix is not identified. No free intra-abdominal air or fluid. No obstruction. Abdominal aorta has a normal course and caliber. Abdominal vasculature is patent. No enlarged intra-abdominal lymph nodes are identified. No suspicious osseous lesions or acute fractures. IMPRESSION: 1. No pulmonary embolus identified within the main, lobar or segmental pulmonary arteries. 2. No acute process identified in the abdomen or pelvis. 3. Moderate-sized hiatal hernia. 4. Numerous hypoattenuating cystic lesions at the kidneys incompletely characterized on this study. 5. Diverticulosis without evidence of acute diverticulitis. Exposure: One or more of the following in the visualized dose reduction techniques were utilized for this examination: 1. Automated exposure control 2. Adjustment of the MA and/or KV according to patient size 3. Use of iterative of reconstructive technique Electronically signed by: Aaron Valentin MD (07/04/2020 6:05 PM) [id number] DICTATED AND SIGNED BY: AARON VALENTIN MD DATE: [id number] CC: KIAH BARRETO MD; GERARDO GUZMAN ~ (GERARDO JARRETT DO) Course & Med Decision Making Course & Med Decision Making Pertinent Labs and Imaging studies reviewed. (See chart for details) Patient 65-year-old female presents the emergency room with multiple complaints including abdominal pain, shortness of breath, fevers, body aches. Is unclear at this time what is causing her symptoms. She does have elevated inflammatory markers. CT Eulalia of chest and CT abdomen pelvis were ordered to evaluate for the cause of symptoms. Coronavirus test was ordered. Patient was discussed with oncoming physician who will assume care. (KIAH BARRETO MD) Course & Med Decision Making 65-year-old female presents the ED with complaints of generalized body aches, fatigue and shortness of breath for approximately 1 month, is convinced she needs antibiotics or has COVID. Lab work shows wbc 12.3, sodium 133, potassium 3.2 (replaced in ed), creatinine 1.1, and elevated CRP and d-dimer. CT Angio of the chest abdomen pelvis does not show any life-threatening pulmonary embolus, pneumonia, w/a normal aorta. It does show incidental findings of a hiatal hernia and diverticulosis. Urinalysis with no infection. COVID test pending. I recommend conservative management with hydration, muscle relaxers, anti- inflammatories and Tylenol. Life-threatening processes considered during patient's history and physical exam, low suspicion given her well appearance (sepsis, meningitis, encephalitis, UTI, pneumonia, pneumothorax, rhabdomyolysis, renal failure, etc). Patient requested to be discharged. Encouraged urgent PMD follow-up in 24 to 48 hours. Strict ED return precautions given for dehydration, neck stiffness, severe headache or increased work of breathing. All of patient's questions were answered and she was stable at time of discharge. (GERARDO JARRETT DO) Dragon Disclaimer Dragon Disclaimer This electronic medical record was generated, in whole or in part, using a voice recognition dictation system. (KIAH BARRETO MD) Departure Departure: Impression: Primary Impression: Shortness of breath Additional Impressions: Body aches Hiatal hernia Diverticulosis Disposition: 01 HOME/RESIDENCE PRIOR TO ADM Condition: STABLE Referrals: GERARDO GUZMAN (PCP) Patient Instructions: Myalgia, Adult, Shortness of Breath Scripts Methocarbamol (ROBAXIN-750) 750 Mg Tablet 1 TAB PO TID for pain for 30 Days, #20 TAB 0 Refills Prov: GERARDO JARRETT DO 07/04/20 Acetaminophen (8Hr Arthritis Pain) 650 Mg Tablet.er 650 MG PO Q6-8HRS PRN for PAIN, #20 TAB.SR Prov: GERARDO JARRETT DO 07/04/20 Justification of Admission: Justification of Admission: Justification of Admission Dx: Yes Sepsis: Infection (KIAH BARRETO MD) Justification of Admission Dx: N/A (GERARDO JARRETT DO) Problem Qualifiers KAIH BARRETO MD Jul 04, 2020 17:44 GERARDO JARRETT DO Jul 04, 2020 19:01
--- NOTE | 2020-07-04 18:09 | RAD ---
Exam: CT of chest, abdomen and pelvis with contrast INDICATION: Shortness of breath, chest pain TECHNIQUE: Sequential axial images through the chest, abdomen and pelvis obtained following the administration of 75 mL of Omni 350 IV contrast. Sagittal and coronal reformatted images were reconstructed from the axial data and reviewed. Comparisons: None FINDINGS: Heterogenous appearance of the right thyroid gland. No suspicious lung nodules are identified. Heart size is normal. No pericardial effusion. Thoracic aorta has a normal course and caliber. Pulmonary artery is not enlarged. No pulmonary embolus identified within the main, lobar or segmental pulmonary arteries. Airways are patent. No consolidation or pneumothorax. No suspicious lung nodules. No pleural effusion or thickening. Liver, spleen, pancreas, gallbladder and adrenals are unremarkable. No perinephric inflammation or hydronephrosis. No renal or ureteral calculi are identified. There are numerous hypoattenuating cystic lesions within the kidneys bilaterally some of which are too small characterize. Bladder is distended and appears thin-walled. Uterus is absent. No abnormal adnexal mass. Few scattered diverticula noted within the descending and sigmoid colon without evidence of acute diverticulitis. Remainder of the large and small bowel are unremarkable. Appendix is not identified. No free intra-abdominal air or fluid. No obstruction. Abdominal aorta has a normal course and caliber. Abdominal vasculature is patent. No enlarged intra-abdominal lymph nodes are identified. No suspicious osseous lesions or acute fractures. IMPRESSION: 1. No pulmonary embolus identified within the main, lobar or segmental pulmonary arteries. 2. No acute process identified in the abdomen or pelvis. 3. Moderate-sized hiatal hernia. 4. Numerous hypoattenuating cystic lesions at the kidneys incompletely characterized on this study. 5. Diverticulosis without evidence of acute diverticulitis. Exposure: One or more of the following in the visualized dose reduction techniques were utilized for this examination: 1. Automated exposure control 2. Adjustment of the MA and/or KV according to patient size 3. Use of iterative of reconstructive technique Electronically signed by: Aaron Cheng MD (07/04/2020 6:05 PM) [id number]
[2020-07-04 19:27] LABS: BILIRUBIN,URINE NEG (NEG); CLARITY,URINE HAZY; COLOR,URINE YELLOW; GLUCOSE,URINE NEG (NEG); NITRITE,URINE NEG (NEG); UROBILINOGEN,URINE 0.2 mg/dL (0.2 mg/dL)
[2020-07-04 19:28] LABS: BACTERIA,URINE MOD /HPF (0-FEW); SQUAMOUS EPITHELIAL CELL,UR OCC /LPF
[2020-07-04 19:34] VITALS: BP 124/73
[2020-07-04] MEDS ORDERED: KETOROLAC 30 MG/ML VIAL. ONE (19:59)
[2020-07-04] MEDS ORDERED: KETOROLAC 30 MG/ML VIAL. IVP ONE (20:00)
[2020-07-04] MEDS ORDERED: [UNRECOGNIZED DRUG - CODE] PO (20:09)
[2020-07-04] MEDS ORDERED: METH-38 PO (20:09)
== END 2020-07-04 20:15 | disposition home or self-care (01) ==
LOC: ER 13:41
DX: K57.90 Diverticulosis of intestine, part unspecified, without perforation or abscess without bleeding (principal); K44.9 Diaphragmatic hernia without obstruction or gangrene; R06.02 Shortness of breath; Z20.828 Contact with and (suspected) exposure to other viral communicable diseases; Z88.2 Allergy status to sulfonamides; Z88.1 Allergy status to other antibiotic agents
CPT/HCPCS: 36415; 71045; 71275; 74177; 80053; 81001; 82550; 83615; 84484; 85025; 85379; 86140; 87040; 87086; 87205; 96374; 99285; J1885; Q9966; Q9967; U0003

== ENCOUNTER 2021-09-30 17:03 | Emergency (ER) | payer BC ==
[~2021-09-30] VITALS: Ht 162.6 cm; Wt 82.7 kg
[~2021-09-30 17:03] MED LIST changes: +AMLO-187 PO; -AMLO10TA8 PO; +METH-38 PO; -OMEP40CA45 PO; +OMEP40CA7 PO; +[UNRECOGNIZED DRUG - CODE] PO
--- NOTE | 2021-09-30 17:29 | PHYS DOC ---
Past History Past Medical History: No Pertinent History Past Surgical History: Appendectomy, Hysterectomy Additional Past Surgical Histo: BLADDER RECONSTRUCTION, HERNIA, L foot, L wrist, hernia Smoking: Non-smoker Alcohol Use: None General Adult EDM: Chief Complaint: SHORTNESS OF BREATH HPI: HPI: Patient is a [age] year old [sex] who presents with [] Review of Systems: Review of Systems: Constitutional: Denies fever or chills Eyes: Denies redness or eye pain HENT: Denies nasal congestion or sore throat Respiratory: Denies cough or shortness of breath Cardiovascular: Denies chest pain or palpitations GI: Denies abdominal pain, nausea, or vomiting : Denies dysuria or hematuria Musculoskeletal: Denies back pain or joint pain Integument: Denies rash or skin lesions Neurologic: Denies headache, focal weakness or sensory changes Complete systems were reviewed and found to be within normal limits, except as documented in this note. Allergies: Allergies: Allergies Coded Allergies Type Severity Reaction Last Updated Verified Sulfa (Sulfonamide Antibiotics) Allergy Unknown 05/23/20 Yes lisinopril Allergy Unknown 09/30/21 Yes Physical Exam: PE: Constitutional: Well developed, well nourished, no acute distress, non-toxic appearance HENT: Normocephalic, atraumatic Eyes: PERRL, EOMI, conjunctiva normal, no discharge Neck: Normal range of motion, no tenderness, supple Lungs & Thorax: No respiratory distress, equal chest rise and fall Abdomen: Soft, no tenderness Skin: Warm, dry, no erythema, no rash Back: No tenderness, no CVA tenderness Extremities: No tenderness, ROM intact, no edema Neurologic: Alert and oriented X 3, normal motor function, normal sensory function, no focal deficits noted Psychologic: Affect normal, judgment normal Current Patient Data: Vital Signs: Vital Signs Date Time Temp Pulse Resp B/P (MAP) Pulse Ox O2 Delivery O2 Flow Rate FiO2 09/30/21 17:19 98.6 91 18 152/94 (113) 96 Room Air EKG: EKG: [] Radiology/Procedures: Radiology/Procedures: [] Heart Score: C/O Chest Pain: N/A Course & Med Decision Making: Course & Med Decision Making Pertinent Labs and Imaging studies reviewed. (See chart for details) Patient stable for discharge with outpatient follow-up with PCP. Discussed findings and plan with patient, who acknowledges understanding and agreement. COVID-19 CRITERIA: The patient was evaluated during the global COVID-19 pandemic, and that diagnosis was suspected/considered upon their initial presentation. Their evaluation, treatment and testing was consistent with current guidelines for patients who present with complaints or symptoms that may be related to COVID-19. Titus Disclaimer: Titus Disclaimer: This electronic medical record was generated, in whole or in part, using a voice recognition dictation system. Departure Departure: Impression: Primary Impression: Viral syndrome Additional Impression: Suspected 2019 novel coronavirus infection Disposition: HOME / SELF CARE / HOMELESS Condition: STABLE Referrals: CARMEN DOMINGUEZ (PCP) Patient Instructions: Incentive Spirometer, Viral Syndrome Additional Instructions: You have been tested for or diagnosed with COVID-19. It is an infection caused by a new type of coronavirus. COVID-19 will cause cold-like or mild flu symptoms in most. It can cause more severe symptoms like problems breathing in some. There is no treatment for COVID-19. The body will clear the infection over time. Self-care will help to ease discomfort. Steps to Take: Self-Care Rest as needed. Healthy habits may help you feel better. Steps include: Choose healthy foods including fruits and vegetables. Drink water throughout the day. Get plenty of sleep each night. If you smoke, try to quit. It may ease breathing. Avoid alcohol. Keep Others Healthy The virus can spread to others. Droplets are released every time you sneeze or cough. The droplets can get into the mouth, nose, or eyes of people near you and lead to infection. To lower the chances of spreading COVID-19 to others: Stay at home until your doctor has said it is safe to leave. If you tested positive this will mean staying isolated until both of the following are true: At least 7 days have passed since the start of illness. You are free of fever for at least 72 hours without the use of medicine. During this time: - Avoid public areas, events, or transportation. Do not return to work or school until your doctor has said it is safe to do so. - Call ahead if you need to go to a medical center. Let them know you may have COVID-19. It will help them guide you where to go. They may also ask you to wear a facemask when you come to the office. - If you call for emergency medical services, let them know you may have COVID- 19. While at home: - Try to avoid close contact with others. Stay about 6 feet away. - If possible, spend most of your time in a separate room from others. - Use a face mask if you will be in close contact with others such as sharing a room or vehicle. - Have someone wipe down common surfaces in the home. Use household flume ride operator every day on areas like doorknobs, counters, or sinks. - Cough or sneeze into a tissue. Throw the tissue away right after use. If a tissue is not available, cough or sneeze into your elbow. - Wash your hands often. Wash them after sneezing or coughing. Use soap and water and wash for at least 20 seconds. Alcohol based hand basin cleaner can be used if soap and water is not available. - Do not prepare food for others. Avoid sharing personal items like forks, spoons, or toothbrushes. - Avoid close contact with pets while you are sick. There is no evidence of the virus passing to pets. This is a safety step until more is known about this virus. Isolation can be frustrating. Social interaction can help. Keep in touch with friends and family through phone and tech options. You can still interact with others in your home, just keep a safe distance of about 6 feet. Follow-up: Your doctors office will check in with you to see if there are any changes in your health. You may be asked to keep track of symptoms to share with them. They will also let you know when you are clear to be in public again. Problems to Look Out For: Contact your doctor if your recovery is not going as you expect. Get emergency care if you have problems such as: - Trouble breathing - Nonstop chest pain or pressure - Changes in awareness, confusion, or problems waking - Lips or face have bluish color - Worsening of symptoms If you think you have an emergency, call for emergency medical services right away. As [facility] from [facility] Azithromycin (AZITHROMYCIN TABLET) 250 Mg Tablet 1 PKG PO UD for COVID pneumonia, #6 TAB Take 2 tablets today and then one tablet every day thereafter for the next 4 days Prov: HAVEN DENNISON DO 09/30/21 HAVEN DENNISON DO Sep 30, 2021 17:29
[2021-09-30] MEDS: DEXAMETHASONE 4 MG TABLET PO ONE (17:42)
[2021-09-30 17:44] VITALS: BP 125/70
--- NOTE | 2021-09-30 17:53 | RAD ---
EXAMINATION: Chest radiograph. VIEWS: Single view COMPARISON: CT chest dated 07/04/2020 INDICATION:66 years, Female, shortness of breath. FINDINGS: Normal cardiomediastinal silhouette. Peripherally predominance right midlung airspace opacity. No ple ural effusion or pneumothorax. No acute osseous process. Unchanged small hiatal hernia. IMPRESSION: Peripherally predominance right midlung airspace opacity, concerning for pneumonia. Consider correlat ion with Covid 19 test. Electronically signed by: Mary Mayen MD (09/30/2021 5:50 PM) [facility]
[2021-09-30] MEDS ORDERED: AZIT250T6 PO (17:58)
== END 2021-09-30 18:28 | disposition home or self-care (01) ==
LOC: ER 17:03
DX: U07.1 COVID-19 (principal); B34.9 Viral infection, unspecified; Z88.2 Allergy status to sulfonamides; Z88.8 Allergy status to other drugs, medicaments and biological substances; Z90.710 Acquired absence of both cervix and uterus
CPT/HCPCS: 71045; 87426; 99284; J8540

== ENCOUNTER → 2022-01-13 | Outpatient (CLI) | payer BC ==
[~2022-01-13] MED LIST changes: +AZIT250T6 PO
== END ==
LOC: LAB 16:52
PROVIDERS: ATTEND Physician Assistant
DX: Z01.812 Encounter for preprocedural laboratory examination (principal)
CPT/HCPCS: 87641